=== PATIENT | female | born 1960 | race Caucasian/White ===

== ENCOUNTER → 2018-11-14 | Outpatient (CLI) | payer BC, OTHER ==
[~2018-11-14] MED LIST: AZO1CAP PO; CHOL100029 PO; EXEM25TA PO; FLON27.5 NARES; LIDOCAINE 1% MDV 20ML VIAL As Ordered ONE; METO1TAB32 PO; NORT25CA2 PO; ONDA-83 PO; PEPC1TAB5 PO; RA F PO; SEPTRA; SILV40CR EXT; SINGULAR; SUMA50TA2 PO; VITA500079 PO; [UNRECOGNIZED DRUG - OTHER]
[2018-11-14 13:36] VITALS: BP 146/92
--- NOTE | 2018-11-14 14:20 | REP ---
POSTBIOPSY MAMMOGRAM, RIGHT BREAST: ML and CC views of the right breast are performed following stereotactic biopsy of microcalcifications in the upper outer quadrant. A metallic clip is seen at the site of the calcifications. There are a few residual calcifications still present. The clip is slightly superior to these residual calcifications. Electronically Signed by Gabriele Laboy MD 11/14/2018 02:42 P
--- NOTE | 2018-11-14 14:21 | REP ---
SPECIMEN RADIOGRAPH: Specimen radiographs are performed following stereotactic biopsy of the right breast. Multiple calcifications are seen in the specimens, particularly specimen 6 and 7. Electronically Signed by Gabriele Laboy MD 11/14/2018 02:42 P
--- NOTE | 2018-11-14 17:02 | REP ---
STEREOTACTIC RIGHT BREAST BIOPSY The procedure was performed under the direct supervision of Dr. Laboy The patient has a history of a new group of microcalcifications in the upper outer quadrant of the right breast seen on a previous mammogram dated 10/24/2018 from [facility]. The risks and benefits of the procedure were explained to the patient and informed consent was obtained. A craniocaudal approach was utilized. The calcifications were localized using stereotactic mammographic guidance. 1% Xylocaine was used as a local anesthetic. An 8 gauge, suction assisted Mammotome needle was inserted and 6 core biopsy samples were obtained. Specimen radiograph demonstrates the presence of calcifications to be within the specimen. A marker clip was placed at the biopsy site. The patient tolerated the procedure well and there were no immediate complications. After the appropriate amount of monitored convalescence, the patient was discharged from the department. Reviewed by KENTON Sepulveda 11/14/2018 04:24 P Electronically Signed by Gabriele Laboy MD 11/14/2018 04:53 P
== END ==
LOC: M IRPRO 11:57
PROVIDERS: ATTEND Nurse Practitioner Adult Health
DX: C50.911 Malignant neoplasm of unspecified site of right female breast (principal)

== ENCOUNTER → 2019-01-07 | Outpatient (CLI) | payer BC, OTHER ==
[~2019-01-07] MED LIST changes: -EXEM25TA PO; -LIDOCAINE 1% MDV 20ML VIAL As Ordered ONE; -ONDA-83 PO; +ONDA4TAB5 PO; -SILV40CR EXT; -VITA500079 PO
--- NOTE | 2019-01-07 15:11 | RADONC ---
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 STAGE: T1mi N0 M0 (Group stage I A). ER mildly positive (10%). [place] negative, HER2/elena negative. The focus of microscopic disease was less than 1 mm. ECOG PERFORMANCE STATUS: 0. HISTORY OF PRESENT ILLNESS: The patient is a 58-year-old female who was found to have a new abnormality including microcalcifications in the upper outer quadrant of the right breast. There was no ultrasound to correlate but a stereotactic core biopsy was recommended. In November 2018, the core biopsy was performed which revealed a grade 3 DCIS, ER weakly positive (10%), [place] negative, surgical pathology ER was 60-70% positive. The patient underwent a right breast lumpectomy on 12/17/2018 which revealed micro-invasive carcinoma less than 1 mm, grade 3 DCIS, ALH, negative margins, ER/[place] positive, unable to access HER2/elena (pathologic stage T1mi N0, M0, group stage I A). It was felt that the patient would be a candidate for adjuvant therapy and she was referred to medical oncologist Dr. Annmarie Jackson and radiation oncology. She comes today to discuss the logistics of external beam radiotherapy. PAST MEDICAL HEALTH: She had a tumor removed from her right breast, see HPI. She also had adenoidectomy in the past and myringotomy tubes placed in her ears as a child. She has a history of a subclavian aneurysm and she had a cervical cone biopsy in 1997 for the questionable and inflammatory changes. She also had a ureter dilated as a child. FAMILY HISTORY OF CANCER: She has an aunt who had cervical cancer. She had two aunts with also cancer involving the stomach, an uncle with prostate cancer, an uncle with bladder cancer and a grandfather with lung cancer on her paternal side. Her mother is 86 and has diabetes and hypertension and her father has a history of leukemia at 94. SOCIAL HISTORY: She quit smoking approximately 20 years ago and does not drink. WORK HISTORY: She works as an [employer]. ENVIRONMENTAL EXPOSURE: denied. ALLERGIES: Denied. MEDICATIONS: - Singular 10 mg p.o. daily - Tylenol PM 2 tablets p.o. daily - famotidine 20 mg p.o. two times a day - vitamin D3 5000 international units p.o. daily - fish oil 1000 mg p.o. daily supplement - AZO cranberry tablets daily - metoprolol 25 mg p.o. daily - Imitrex p.o. for migraine headaches. - Zofran 4 mg p.o. p.r.n. nausea - Flonase 2 puffs inhaled for allergies. REVIEW OF SYSTEMS: RESPIRATORY: She denies coughing, dyspnea, hemoptysis hiccups pleuritic pain or wheezing. PSYCHIATRIC: Denies delusions, hallucinations. Mood swings. NEUROLOGIC: Denies disorientation dizziness, changes in gait significant headaches, insomnia. memory loss. neuropathy. paralysis. seizure disorder. sensory disorders or strokes. NECK: Denies masses, muscle weakness. pain. decreases in range of motion or swelling. MUSCULOSKELETAL: Denies significant arthritis bone pain, joint pain, muscle weakness or decreased range of motion. INTEGUMENTARY: Denies alopecia, blisters, bruising, dry skin, facial burning problems with fingernails or toenails, problems with photosensitivity, pruritus, rashes or urticaria. LYMPHATIC: Denies easy bruising or lymphadenopathy. GENITOURINARY: Denies dysuria, frequency genital masses, hematuria, incontinence, nocturia, renal stones, sexual dysfunction, urgency, urine color changes, vaginal discharge, bleeding or vaginal spotting. She did have ureteral dilatation as a child. GASTROINTESTINAL: Denies bowel changes, constipation, diarrhea, heartburn, dyspepsia, hematemesis, hematochezia, hemorrhoids, melanin, nausea, pain, cramping, early satiety or vomiting. ENDOCRINE: Denies diabetes, hot flashes, menstrual irregularities/the patient is postmenopausal or hypothyroidism. CONSTITUTIONAL: Denies decreased appetite, fatigue, fever, lethargy, malaise, night sweats, rigors, chills or weight change. CARDIOVASCULAR: She does have a history of subclavian aneurysm on the left which they are watching. She denies arrhythmias, chest pain, dyspnea, edema, orthopnea, palpitations. BREASTS: She is well healed from her lumpectomy. Denies any significant breast masses, nipple discharge, nipple inversion or pain. ALLERGIES: She does have some seasonal allergies but denies adverse, allergic reactions VITALS: O2 saturation 96%. Diastolic 80, systolic 125, respirations 18, pulse 83, temperature 97.8, weight 190.4, height 66.5. HEENT: Normocephalic. EOMs intact. PERRLA. Fundi benign. LYMPHATICS: No palpable peripheral lymphadenopathy is appreciated in the cervical, supraclavicular, axillary or inguinal lymph node chains. LUNGS: Lungs are clear to auscultation and percussion. HEART: Regular without murmurs. ABDOMEN: Without evidence of hepatomegaly, masses or deep abdominal tenderness. EXTREMITIES: Without cyanosis, clubbing or edema. NEUROLOGIC: Examination grossly physiologic and nonfocal. BREASTS: Bilaterally symmetric. A lumpectomy incision is noted involving the right breast at approximately the 10-11 o'clock position. It is well-healed. No masses are palpable. IMPRESSION: Stage T1,mi N0, M0 ductal carcinoma with high-grade DCIS. The patient is status post right partial mastectomy with all margins clear. Her tumor was ER positive, HER2/elena negative. PLAN OF RADIOTHERAPY: The patient is a candidate for adjuvant breast conservation radiotherapy. We would recommend that she be treated to the entire breast for a total of approximately 4860 cGy with consideration for electron boost to the lumpectomy scar site, thereafter. Prior to treatment delivery localization will be accomplished upon our CT simulator and treatment portals defined by the use of multiple leaf collimators. The indications, possible side effects as well as alternatives to radiotherapy been explained to the patient in detail. She understands and is willing to proceed as outlined. Thank you for referring this very conrad lady to us and allowing us the opportunity of participation in her overall management. Most sincerely, cc: MD Jamila Alvarenga MD Steven Lyndaker, MD MTDD
== END ==
LOC: M ONCR 12:41
PROVIDERS: ATTEND Radiology Radiation Oncology
DX: C50.919 Malignant neoplasm of unspecified site of unspecified female breast (principal)

== ENCOUNTER 2019-01-29 12:55 | Outpatient (RCR) | payer BC, OTHER ==
--- NOTE | 2019-01-20 07:41 | RADONC ---
RADIATION ONCOLOGY SIMULATION NOTE DATE: 01/16/2019 CHART NUMBER: [id number] Ms. Nazario was taken to the CT scan for CT simulation of her right breast field. CT was accomplished without difficulty or discomfort. Radiation treatment planning is underway and radiation treatments will begin subsequently. An immobilization device was created without difficulty or discomfort. It will be used throughout the course of treatment. I was physically present throughout the course of CT simulation.
--- NOTE | 2019-01-29 08:44 | RADONC ---
RADIATION ONCOLOGY PROGRESS NOTE DATE: 01/27/2019 CHART #: [id number] Ms. Nazario was taken to the linear accelerator today and underwent her first fraction of radiation to her right breast for a dose of 180 cGy. Her first treatment was tolerated without difficulty or discomfort. REVIEW OF SYSTEMS: The patient's review of systems remains noncontributory. Denies nausea, vomiting, fevers, chills, night sweats, diplopia, headaches, anxiety or depression, anorexia, weight loss, visual disturbances, chest pain, urinary or bowel difficulties, bone pain, or neurological problems. PHYSICAL EXAMINATION: The patient's skin clearly shows no evidence of radiation change present since this was her first fraction of treatment. The remainder of her physical exam remains unchanged as well. Ms. Nazario tolerated her first fraction of radiation without difficulty and radiation will continue as scheduled.
== END 2019-02-01 ==
LOC: M ONCR 12:55
PROVIDERS: ATTEND Radiology Radiation Oncology
DX: C50.411 Malignant neoplasm of upper-outer quadrant of right female breast (principal)

== ENCOUNTER → 2019-03-04 | Outpatient (RCR) | payer BC, OTHER ==
--- NOTE | 2019-02-04 15:24 | RADONC ---
RADIATION ONCOLOGY ON TREATMENT NOTE: DATE OF SERVICE: 02/04/2019 CHART NUMBER: [id number] Ms Nazario is a 58-year-old woman who carries the diagnosis of right breast CA. So far, she has received a dose of 900 cGy in five fractions. Treatment is uneventful. She has no complaints. There is noticeable skin changes. Skin care discussed. Treatment will continue as planned. MTDD
--- NOTE | 2019-02-10 14:43 | RADONC ---
RADIATION ONCOLOGY PROGRESS NOTE DATE: 02/10/2019 CHART NUMBER: [id number] PROGRESS NOTE: Ms. Nazario is presently at a dose of 1620 cGy to her right breast and is tolerating treatments quite well at this point with no complaints related to her radiation therapy. She is having no breast or bone pain. REVIEW OF SYSTEMS: The patient's review of systems is noncontributory. Denies nausea, vomiting, fevers, chills, night sweats, diplopia, headaches, anxiety or depression, anorexia, weight loss, visual disturbances, chest pain, urinary or bowel difficulties, bone pain, or neurological problems. PHYSICAL EXAMINATION: The patient's skin is in good condition with no evidence of radiation change present. There is no moist or dry desquamation. The remainder of her physical exam remains unchanged. Ms. Nazario is tolerating treatments quite well and radiation will continue as scheduled.
--- NOTE | 2019-02-19 08:05 | RADONC ---
RADIATION ONCOLOGY PROGRESS NOTE: DATE: 02/17/2019 CHART NUMBER: [id number] Ms. Nazario is presently at a dose of 2520 cGy to her right breast and is tolerating treatments quite well at this point with no significant complaints related to her radiation therapy. She has no significant breast or bone pain. REVIEW OF SYSTEMS: The patient's review of systems is noncontributory. Denies nausea, vomiting, fevers, chills, night sweats, diplopia, headaches, anxiety or depression, anorexia, weight loss, visual disturbances, chest pain, urinary or bowel difficulties, bone pain, or neurological problems. PHYSICAL EXAMINATION: The patient's skin is in generally good condition with no evidence of moist or dry desquamation. The remainder of her physical exam remains unchanged. Ms. Nazario is tolerating her treatments quite well and radiation will continue as scheduled.
--- NOTE | 2019-02-28 09:46 | RADONC ---
RADIATION ONCOLOGY PROGRESS NOTE DATE: 02/24/2019 CHART NUMBER: [id number] Nahomi Nazario, with a diagnosis of right breast cancer, is currently receiving local regional radiotherapy, and she has achieved a dose of 3420 cGy to date. She is tolerating her radiotherapy reasonably well, denying any significant nausea, vomiting, coughing, sputum production, or hemoptysis. She does experience some itching of the skin but has been placing no product on the skin. Her energy level is such that she is able to maintain most of her day-to-day activities without any alteration of her lifestyle. EXAMINATION FINDINGS: The skin within the irradiated volume shows only a minimal erythematous blush without desquamation. There is no palpable peripheral lymphadenopathy. The remainder of the physical examination is unchanged. IMPRESSION: Tolerating therapy well. PLAN: We have given her some topical emollients to place on the skin to help ameliorate her itching and irritation, and I have suggested that she might want to get hydrocortisone cream at her neighborhood drug store, such as, an [id number] product. PLAN: Her treatments will continue. JAE
--- NOTE | 2019-03-03 14:30 | RADONC ---
RADIATION ONCOLOGY PROGRESS NOTE DATE: 03/03/2019 CHART NUMBER: [id number] Mrs. Nazario with a diagnosis of ductal carcinoma involving the right breast upper outer quadrant, stage [id number] (Group stage IA), ER mildly positive DC negative, HER2/elena negative is currently receiving local regional radiotherapy. She is tolerating her radiotherapy reasonably well. She denies any nausea, vomiting, coughing, sputum production or hemoptysis but she does experience some minimal to moderate amount of skin erythema. She has only five more treatments to complete her entire prescribed dose of radiotherapy and is at a dose currently of 4140 cGy. After the completion of 4860 cGy the patient will have a boost to the lumpectomy scar site. As stated the patient does experience some skin rash and minimal itching. Her current dose is 3960 cGy and we are planning a 1200 cGy boost at the completion of 4860 cGy. EXAMINATION FINDINGS: The skin within the irradiated volume shows a brisk erythematous blush with perifollicular hypererythematous changes and hyperpigmentosus, but no evidence of moist desquamation. In the inframammary fold the skin reaction has slightly worsened. There is no palpable peripheral lymphadenopathy. Lungs are clear. The remainder of the physical examination is unchanged. IMPRESSION: Tolerating therapy well. PLAN: Treatments to continue.
[~2019-03-04] MED LIST changes: +EXEM25TA PO; +VITA500079 PO
== END ==
LOC: M ONCR 02-03 12:59
PROVIDERS: ATTEND Radiology Radiation Oncology
DX: C50.411 Malignant neoplasm of upper-outer quadrant of right female breast (principal)

== ENCOUNTER 2019-03-19 13:02 | Outpatient (RCR) | payer BC, OTHER ==
--- NOTE | 2019-03-06 19:23 | RADONC ---
RADIATION ONCOLOGY SIMULATION NOTE DATE: 03/06/2019 CHART NUMBER: [id number] Ms. Nazario was taken to the linear accelerator today for clinical setup of her electron beam boost field. Setup was accomplished without difficulty or discomfort. Radiation treatment planning is underway and radiation treatments will begin subsequently. An immobilization device was created. It will be used throughout the course of treatment. It was created without difficulty or discomfort. I was physically present throughout the course of clinical setup simulation of her right breast boost field.
--- NOTE | 2019-03-11 07:47 | RADONC ---
RADIATION ONCOLOGY PROGRESS NOTE DATE: 03/10/2019 CHART #: [id number] Ms. Nazario is presently at a dose of 5060 cGy to her right breast primary site boost and is tolerating her treatments fairly well with no significant difficulties related to her radiation therapy other than some axillary and inframammary discomfort. REVIEW OF SYSTEMS: The patient's review of systems is positive for some skin discomfort which she says keeps her up at night. The remainder of her review of systems is noncontributory. Denies nausea, vomiting, fevers, chills, night sweats, diplopia, headaches, anxiety or depression, anorexia, weight loss, visual disturbances, chest pain, urinary or bowel difficulties, bone pain, or neurological problems. PHYSICAL EXAMINATION: The patient's skin shows erythema and tanning present. There is some desquamation in the inframammary and axillary regions. The remainder of her physical exam remains unchanged. I have given the patient a prescription for Silvadene to be applied topically three times a day. In the meantime, radiation will continue as scheduled.
--- NOTE | 2019-03-18 09:28 | RADONC ---
RADIATION ONCOLOGY PROGRESS NOTE DATE: 03/17/2019 CHART NUMBER: [id number] PROGRESS NOTE: Ms. Nazario is presently at a dose of 5660 cGy to her right breast primary site region and is tolerating treatments quite well at this point with no complaints related to her radiation therapy. She is having no breast or bone pain. REVIEW OF SYSTEMS: The patient's review of systems is noncontributory. Denies nausea, vomiting, fevers, chills, night sweats, diplopia, headaches, anxiety or depression, anorexia, weight loss, visual disturbances, chest pain, urinary or bowel difficulties, bone pain, or neurological problems. PHYSICAL EXAMINATION: The patient's skin is in good condition with no evidence of moist or dry desquamation. The remainder of her physical exam remains unchanged. Ms. Nazario is tolerating treatments quite well and radiation will continue as scheduled.
[~2019-03-19 13:02] MED LIST changes: +ONDA-83 PO; -ONDA4TAB5 PO; +SILV40CR EXT
--- NOTE | 2019-03-20 11:30 | RADONC ---
RADIATION ONCOLOGY TREATMENT SUMMARY DATE: 03/19/2019 CHART NUMBER: [id number] DIAGNOSIS: Ductal carcinoma of right breast. STAGE: IA, T1mi, N0, M0, ER positive, NE negative, HER2 negative. ECOG PERFORMANCE STATUS: 0 TREATMENT SUMMARY: Ms. Nazario is a very pleasant 58-year-old white female with the diagnosis of a stage IA, T1mi, N0, M0 microinvasive ductal carcinoma in situ of the right breast who presented to us for consideration of postoperative radiation therapy for conservative breast management. We treated the patient to the right breast for a total dose of 4860 cGy delivered in 27 fractions of 180 cGy each over 43 elapsed days from 01/27/2019 through 03/11/2019. The patient's right breast was treated on a linear accelerator utilizing a combination of 6X and 10X photons via 3D conformal technique with medial lateral tangential diallo. Following completion of 4860 cGy to the entire right breast the primary site was boosted for an additional 1200 cGy delivered in six fractions of 200 cGy each from 03/12/2019 through 03/19/2019. The primary site boost was treated on a linear accelerator utilizing a 16 MeV electron beam prescribed to the 90% isodose line via an en face technique. This brought the primary site to a total dose of 6060 cGy delivered in 33 fractions over 50 elapsed days from 01/27/2019 through 03/19/2019. Ms. Nazario tolerated her treatments quite well and was able to complete therapy as prescribed. I have scheduled the patient to see me again in 1 month for further followup. She will also continue to be followed by her other physicians as well. cc: MD Jamila Alvarenga MD Steven Lyndaker, MD
== END 2019-04-04 ==
LOC: M ONCR 13:02
PROVIDERS: ATTEND Radiology Radiation Oncology
DX: C50.411 Malignant neoplasm of upper-outer quadrant of right female breast (principal)

== ENCOUNTER → 2019-04-23 | Outpatient (CLI) | payer BC, OTHER ==
--- NOTE | 2019-04-24 14:44 | RADONC ---
RADIATION ONCOLOGY DATE: 04/23/2019 CHART NUMBER: [id number] DIAGNOSIS: Infiltrating ductal carcinoma of the right breast. STAGE: IA, [id number], ER positive, [place] negative, HER2 negative. Ms. Nazario is a very pleasant 58-year-old female who carries a diagnosis of stage IA microinvasive ductal carcinoma of the right breast. She completed radiation therapy on March 19, 2019. INTERVAL HISTORY: She is currently on Arimidex without any significant side effects. She has chronic hot flashes. She denies any bone pain. SYSTEMIC REVIEW: She denies fevers, chills, headache, loss of appetite or any weight changes. PHYSICAL EXAMINATION: ECOG performance status 0. VITAL SIGNS: She weighs 199.8 pounds. Temperature 97.2, pulse 62, respirations 18, blood pressure 125/77, oxygen saturation is 96% in room air. GENERAL: well developed nourished female, not in apparent distress HEENT:There were no palpable lymphadenopathies in the neck or axilla bilaterally. BREAST: Both breasts are pendulous. Right is slightly smaller than the left. There is mild hyperpigmentation in the right breast. Lumpectomy scar noted just above the nipple. RESPIRATORY: Lungs are clear. ABDOMEN:Abdomen is obese, soft, nontender, nondistended with any palpable mass or organomegaly. Extremities no swelling or cyanosis or clubbing. ASSESSMENT/RECOMMENDATIONS: This is a 58-year-old female who carries the diagnosis of stage IA, [id number] microinvasive carcinoma of the right breast. She is status post radiation therapy which was completed on March 19, 2019. She is currently on Arimidex. She has no hot flashes or bone pain. Her mammography was last November was negative and a six month followup mammography was recommended. She was advised continuous followup with her physicians involved and she was advised to return here in 4 months or sooner if it is needed. JAE
== END ==
LOC: M ONCR 12:46
PROVIDERS: ATTEND Radiology Radiation Oncology
DX: C50.411 Malignant neoplasm of upper-outer quadrant of right female breast (principal)

== ENCOUNTER → 2019-09-24 | Outpatient (CLI) | payer BC, OTHER | LOC: M ONCR 12:55 | PROVIDERS: ATTEND Radiology Radiation Oncology | DX: C50.411 Malignant neoplasm of upper-outer quadrant of right female breast (principal) ==

== ENCOUNTER → 2019-12-24 | Outpatient (CLI) | payer BC, OTHER ==
--- NOTE | 2019-12-24 14:39 | RADONC ---
Radiation Oncology Hx/FUP Radiation Oncology Hx/FUP Date of Service: Dec 24, 2019 Pt Identifier Nahomi Nazario is a 59 year old female seen for a followup visit today at the department of radiation oncology for a history of right breast cancer [id number] ER/OR+ HER2- grade 3 s/p lumpectomy 12/17/18 and adjuvant RT 48.6 Gy in 27 fraction WBI followed by 12 Gy in 6 fractions to the tumor bed completed 03/19/19. Diagnosis/Treatment History Oncologic History As above Interval History Feels well overall. Taking exemestane with hot flashes as her only side effect. Has considered SSRI/SNRI but does not want to risk side effects with these medications. Appetite good weight stable. Energy levels good. No cosmetic complaints, no concerns about skin. She has scheduled follow up with medical oncology and mammography scheduled for this year. Current Therapy exemestane/prolia Stage [id number] ER/OR+ HER2- Grade 3 Stage IA Social History: Non smoker Non drinker Allergies / Meds Allergies: Coded Allergies: No Known Allergies (Unverified , 11/08/18) Home Meds Active Scripts Silver Sulfadiazine (Silvadene) 400 Gm Cream..g., 400 GRAMS EXT TID for apply to right breast, #1 GRAMS 5 Refills Prov:Gabriele Morrison 03/10/19 Exemestane (Exemestane) 25 Mg Tablet, 1 TAB PO DAILY for 30 Days, #30 TAB 11 Refills Prov:Annmarie Jackson MD 02/18/19 Reported Medications Cholecalciferol (Vitamin D3) (Vitamin D3) 5,000 Unit Tab.rapdis, 1 TAB PO DAILY for 30 Days, #30 TAB 02/18/19 Cranberry Fruit Extract/Vit C (Azo Cranberry Softgel) 1 Each Capsule, 1 CAP PO DAILY for 30 Days, #30 CAP 01/07/19 Fluticasone Furoate (Flonase Sensimist) 5.9 Ml [place].susp, 2 PUFF NARES DAILY, #15.8 ML 01/07/19 Sumatriptan Succinate (Sumatriptan Succinate) 50 Mg Tablet, 50 MG PO DAILY for headache for 9 Days, #9 TAB 01/06/19 Ondansetron HCl (Ondansetron HCl) 4 Mg Tablet, 4 MG PO Q6HP PRN for nausea/vomiting, #10 TAB 01/06/19 [place]-3 Fatty Acids/Fish Oil (Ra Fish Oil 1,000 mg Softgel) 1 Each Capsule, 1 CAP PO, CAP 01/06/19 Famotidine (Pepcid) 20 Mg Tablet, 20 MG PO BID, TAB 11/08/18 [Singular] No Conflict Check, 10 MG DAILY 11/08/18 Metoprolol Succinate (Metoprolol Succinate) 25 Mg Tab.er.24h, 25 MG PO DAILY, TAB 11/08/18 Review of Systems Review of Systems Constitutional: Denies: ROS Unabtainable, Chills, Fever, Malaise, Night Sweats, Weakness, Fatigue, Weight Loss, Lethargy, Normal appetite, Other symptoms Eyes: Denies: Pain, Vision change, Conjunctivae inflammation, Eyelid inflammation, Redness, Other HEENT: Denies: Head Aches, Ear Pain, Dysphagia, Sinus Congestion, Post Nasal Drip, Sore Throat, Epistaxis, Other Symptoms Skin: Denies: Rash, Lesions, Jaundice, Bruising, Other Breast: Denies: New Breast Lumps / Masses, Nipple Retraction, Nipple Discharge, Breast Skin Changes, Breast Pain or Tenderness, Other Breast Complaints Pulmonary: Denies: Dyspnea, Cough, Pleuritic Chest Pain, Other Symptoms Cardiovascular: Denies: Chest Pain, Palpitations, Orthopnea, Paroxysmal Noc. Dyspnea, Edema, Lt Headedness, Other Symptoms Gastrointestinal: Denies: Nausea, Vomiting, Abdominal Pain, Diarrhea, Constipation, Melena, Hematochezia, Other Symptoms Genitourinary: Denies: Dysuria, Frequency, Incontinence, Hematuria, Retention, Other Symptoms Hematologic: Denies: Bruising, Bleeding Excessively, Petecchia, Purpura, Enlarged Lymph Nodes, Other Hematologic Endocrine: Reports: Heat Intolerance (Hot flashes daily); Denies: Polydipsia, Polyphagia, Polyuria, Cold Intolerance, Other Endocrine Sx Musculoskeletal: Denies: Neck pain, Shoulder pain, Arm pain, Back pain, Hand pain, Leg pain, Foot pain, Joint pain, Muscle pain, Spasms, Gout, Joint sweling, Muscle stiffness, Midthoracic pain, Other Neurological: Denies: Weakness, Numbness, Incoordination, Change in Speech, Confusion, Seizures, Other Symptoms Psych: Denies: Mood Normal, Anxiety, Depression, Memory Issues, Thoughts of Self Harm, Anger, Thoughts of harming Other, Other Psych Physical Examination Vital Signs Wt 195lb T 98.2 P 68 RR 16 BP 126/85 O2 96% Pain 0 Fatigue 0 General Exam: Positive: Alert, Cooperative, No Acute Distress Eye Exam: Positive: PERRLA, EOMI ENT EXAM: Positive: Atraumatic, Pharynx Normal Neck Exam: Positive: Supple; Negative: Lymphadenopathy Chest Exam: Positive: Clear to auscultation, Normal air movement Heart Exam: Positive: Rate Normal, Regular Rhythm Breast Exam: Positive: Symmetric Bilaterally; Negative: Lumps or Masses (No breast masses or axillary adenopathy), Nipple Retraction, Nipple Discharge, Skin Changes, Other Breast Findings (No post radiation fibrosis or discernible skin changes) Abdomen Exam: Positive: Normal bowel sounds, Soft; Negative: Tenderness Extremity Exam: Negative: Edema Skin Exam: Positive: Nl turgor and temperature; Negative: Rash Neuro Exam: Positive: Normal Gait, Normal Speech, Cranial Nerves 3-12 NL Psych Exam: Positive: Mental status NL, Mood NL; Negative: Anxiety Diagnostic and Laboratory Diagnostic Review Radiologic images, relevant labs and pathology reports were personally reviewed and discussed with Ms. Nazario. Assessment and Plan Impression Assessment Ms. Nazario is a 59 year old female with a history of right breast cancer [id number] ER/OR+ HER2- grade 3 s/p lumpectomy 12/17/18 and adjuvant RT 48.6 Gy in 27 fraction WBI followed by 12 Gy in 6 fractions to the tumor bed completed 03/19/19. She is doing well overall, tolerating AI despite the hot flashes. I offered her effexor today for this, she declined. Afraid of effects on mood. She has CHRISTEL on my exam, nor any evidence of post-RT fibrosis or skin sequelae. She is now approaching 1 year removed from treatment. She has appropriate medical oncology and mammographic follow up, therefore I will see her annually for now. Performance Status ECOG 0 Plan Follow up in 1 year Ms. Nazario was encouraged to call with questions or concerns in the interim period. LAYA GUERRERO MD Dec 24, 2019 14:39
== END ==
LOC: M ONCR 13:03
PROVIDERS: ATTEND General Practice
DX: C50.411 Malignant neoplasm of upper-outer quadrant of right female breast (principal)

== ENCOUNTER → 2021-02-03 | Outpatient (CLI) | payer BC, OTHER ==
[~2021-02-03] MED LIST changes: +D31000TA2 PO; +GABA-282 PO
--- NOTE | 2021-02-03 14:02 | RADONC ---
Radiation Oncology Hx/FUP Radiation Oncology Hx/FUP Date of Service: Feb 03, 2021 Pt Identifier Nahomi Nazario is a 60 year old female seen for a followup visit today at the department of radiation oncology for a history of right breast cancer [id number] ER/ME+ HER2- grade 3 s/p lumpectomy 12/17/18 and adjuvant RT 48.6 Gy in 27 fraction WBI followed by 12 Gy in 6 fractions to the tumor bed completed 03/19/19. Diagnosis/Treatment History Oncologic History As above Survivorship Test Due Next Last result Notes TSH, T4* 6m post-tx, then q1y N/A Carotid US* q10 y post-tx N/A Smoking cessation Assess annually if applicable N/A Screening CT chest q1y if eligible per USPSTF N/A Mammograms Min q1y, if breast conservation August negative CBC,CMP, Lipids q1y Per PCP DEXA q2y if on AI Per PCP 2019 osteopenia Interval History Nahomi feels well. She recently recovered from pyelonephritis and sepsis due to an entrapped kidney stone. She has urology follow up in [place] in the coming month for management of her remaining stone burden. She has no breast concerns today. Is up to date with her mammograms, continues on AI with no side effects. Appetite good and weight stable. Current Therapy Exemestane/prolia Stage [id number] ER/ME+ HER2- Grade 3 Stage IA Social History: Non smoker Non drinker Allergies / Meds Allergies: Coded Allergies: No Known Allergies (Unverified , 11/08/18) Home Meds Active Scripts Exemestane (Exemestane) 25 Mg Tablet, 1 TAB PO DAILY for 30 Days, #30 TAB 11 Refills Prov:KIRSTEN BURNETT MD FACP 01/24/21 Gabapentin (Gabapentin) 300 Mg Capsule, 300 MG PO DAILY, #30 CAP 3 Refills Prov:KIRSTEN BURNETT MD FACP 11/01/20 Reported Medications Cholecalciferol (Vitamin D3) (Vitamin D3) 1,000 Unit Tablet, 5000 UNITS PO DAILY, TAB 09/17/20 Cranberry Fruit Extract/Vit C (Azo Cranberry Softgel) 1 Each Capsule, 1 CAP PO DAILY for 30 Days, #30 CAP 01/07/19 Fluticasone Furoate (Flonase Sensimist) 5.9 Ml [place].susp, 2 PUFF NARES DAILY, #15.8 ML 01/07/19 Sumatriptan Succinate (Sumatriptan Succinate) 50 Mg Tablet, 50 MG PO DAILY for headache for 9 Days, #9 TAB 01/06/19 Ondansetron HCl (Ondansetron HCl) 4 Mg Tablet, 4 MG PO Q6HP PRN for nausea/vomiting, #10 TAB 01/06/19 [place]-3 Fatty Acids/Fish Oil (Ra Fish Oil 1,000 mg Softgel) 1 Each Capsule, 1 CAP PO, CAP 01/06/19 Famotidine (Pepcid) 20 Mg Tablet, 20 MG PO BID, TAB 11/08/18 [Singular] No Conflict Check, 10 MG DAILY 11/08/18 Metoprolol Succinate (Metoprolol Succinate) 25 Mg Tab.er.24h, 25 MG PO DAILY, TAB 11/08/18 Review of Systems Review of Systems Constitutional: Denies: Fatigue, Weight Loss Breast: Denies: New Breast Lumps / Masses, Nipple Retraction, Nipple Discharge, Breast Skin Changes, Breast Pain or Tenderness Pulmonary: Denies: Dyspnea, Cough Cardiovascular: Denies: Chest Pain, Edema Genitourinary: Denies: Hematuria Neurological: Denies: Weakness, Numbness Psych: Reports: Mood Normal Physical Examination Vital Signs Ht 69" Wt 193 lbs BMI 28.5 T 97.5 P 61 RR 18 BP 135/93 O2 96% Fatigue 0 Pain 0 General Exam: Alert, Cooperative, No Acute Distress Eye Exam: PERRLA, EOMI ENT EXAM: Atraumatic Neck Exam: Supple Chest Exam: Clear to auscultation, Normal air movement Heart Exam: Rate Normal, Regular Rhythm Breast Exam: Symmetric Bilaterally; Negative: Lumps or Masses (No palpable fibrosis or lesions BL. No axillary l esions BL), Nipple Retraction, Nipple Discharge, Skin Changes Abdomen Exam: Soft Extremity Exam: Negative: Edema Skin Exam: Nl turgor and temperature Neuro Exam: Normal Gait, Normal Speech Psych Exam: Mental status NL Diagnostic and Laboratory Diagnostic Review Radiologic images, relevant labs and pathology reports were personally reviewed and discussed with Ms. Nazario. Assessment and Plan Impression Assessment Ms. Nazario is a 60 year old female with a history of right breast cancer [id number] ER/ME+ HER2- grade 3 s/p lumpectomy 12/17/18 and adjuvant RT 48.6 Gy in 27 fraction WBI followed by 12 Gy in 6 fractions to the tumor bed completed 03/19/19. She is doing well from a breast care standpoint. She has mammography follow up in place. She has no late sequelae of RT evident. Therefore I will see her again in 1 year. Performance Status ECOG 0 Plan Follow up in 1 year Ms. Nazario was encouraged to call with questions or concerns in the interim period. Billing Statement Total time of [23] minutes was spent preparing for the visit [2], obtaining HPI [4], examining the patient [4], reviewing diagnostic tests [1], discussing management options [4], coordinating care [1], and writing this note [7]. LAYA GUERRERO MD Feb 03, 2021 14:02
== END ==
LOC: M ONCR 11:09
PROVIDERS: ATTEND General Practice
DX: C50.411 Malignant neoplasm of upper-outer quadrant of right female breast (principal); Z92.3 Personal history of irradiation; Z92.21 Personal history of antineoplastic chemotherapy; Z79.899 Other long term (current) drug therapy

== ENCOUNTER → 2022-02-08 | Outpatient (CLI) | payer MEDICARE, BC, OTHER ==
[~2022-02-08] MED LIST changes: +CEPH500C PO; -D31000TA2 PO; +ECOT81TA5 PO; +SING10TA32 PO; +VITA100093 PO
== END ==
LOC: M ONCR 12:24
PROVIDERS: ATTEND General Practice
DX: C50.411 Malignant neoplasm of upper-outer quadrant of right female breast (principal); Z92.3 Personal history of irradiation; Z79.811 Long term (current) use of aromatase inhibitors; Z79.82 Long term (current) use of aspirin; Z87.891 Personal history of nicotine dependence; Z79.899 Other long term (current) drug therapy

== ENCOUNTER → 2023-03-26 | Outpatient (CLI) | payer MEDICARE, BC, OTHER ==
[~2023-03-26] MED LIST changes: +MONT-5 PO; +ROSU5TAB5 PO; -SING10TA32 PO; +VALS40TA9 PO
== END ==
LOC: M ONCR 13:37
PROVIDERS: ATTEND General Practice
DX: Z08 Encounter for follow-up examination after completed treatment for malignant neoplasm (principal); Z85.3 Personal history of malignant neoplasm of breast; Z71.2 Person consulting for explanation of examination or test findings; Z79.82 Long term (current) use of aspirin; Z79.51 Long term (current) use of inhaled steroids; Z79.899 Other long term (current) drug therapy; Z87.891 Personal history of nicotine dependence; Z92.3 Personal history of irradiation; Z98.890 Other specified postprocedural states